=== PATIENT | female | born 1965 | race Two or more races ===

== ENCOUNTER → 2016-04-22 | Outpatient (CLI) | payer OTHER ==
[~2016-04-22] MED LIST: AZIT500T4 PO; CLIN-77 VG; FLUC50TA5 PO; KETO200T VG; MELO-273 PO; METH500T6 PO; [UNRECOGNIZED DRUG - CODE] PO
== END | disposition home or self-care (01) ==
LOC: RADMN 08:27
PROVIDERS: ATTEND Family Medicine
DX: M21.6X2 Other acquired deformities of left foot (principal); M19.072 Primary osteoarthritis, left ankle and foot; R60.0 Localized edema; M65.872 Other synovitis and tenosynovitis, left ankle and foot; M77.32 Calcaneal spur, left foot; M76.62 Achilles tendinitis, left leg
CPT/HCPCS: 73718; 73721